=== PATIENT | female | born 1975 | race Caucasian/White ===

== ENCOUNTER 2016-05-18 20:55 | Emergency (ER) | payer BC, OTHER ==
[~2016-05-18] VITALS: Ht 165.1 cm; Wt 89.7 kg
[2016-05-18 20:56] VITALS: BP 133/100; PULSE 93; RESP 18; TEMP 98.6; O2SAT 97
[2016-05-18] MEDS ORDERED: PRED-503 PO (22:53)
[2016-05-18] MEDS ORDERED: DOXY100C PO (22:53)
[2016-05-18] MEDS ORDERED: ALBU6.7H INH (22:53)
--- NOTE | 2016-05-18 22:56 | PD ---
HPI Chief Complaint: Cold / Flu Symptoms Time Seen by Provider: 22:53 Travel History International Travel<30 days: No Contact w/Intl Traveler<30days: No Traveled to known affect area: No History of Present Illness HPI 41-year-old female presents to emergency department with a 3-4 day history of headache, sore throat, cough, congestion, runny nose and general malaise. She denies any shortness of breath. No nausea vomiting. No abdominal pain or diarrhea. No dysuria or frequency. No hematuria. PFSH Past Medical History Narrative Medical Asthma Asthma: Yes Diminished Hearing: No Tetanus Vaccination: < 5 Years ?: Not LMP: HAS MIRENA Past Surgical History Narrative Surgical , herniorrhaphy Abdominal Surgery: Yes (HERNIA REPAIR) Section: Yes Social History Alcohol Use: No Tobacco Use: No Substance Use: No Allergies-Medications (Allergen,Severity, Reaction): Coded Allergies: Seafood (Verified Allergy, Severe, Swelling, 05/18/16) Review of Systems Except as stated in HPI: all other systems reviewed are Neg Physical Exam Narrative GENERAL: Well-developed, well-nourished in no acute distress. Nontoxic appearing. HEAD: Normocephalic, atraumatic. EYES: Pupils equal round and reactive. Extraocular motions intact. No scleral icterus. No injection or drainage. ENT: TMs clear without erythema. The external auditory canals clear. Nose: clear nasal discharge with edema of the turbinates . Posterior pharynx is pink and moist. No tonsillar edema or exudate. Uvula midline. Airway patent. NECK: Trachea midline.Supple, nontender, moves head freely. No central bony tenderness or spasm. CARDIOVASCULAR: Regular rate and rhythm without murmurs, gallops, or rubs. RESPIRATORY: Patient has a few fine x-ray wheeze. Occasional rhonchi. No Rales. No respiratory distress. GASTROINTESTINAL: Abdomen soft, non-tender, nondistended. No hepato-splenomegaly , or palpable masses. No guarding. EXTREMITIES: No clubbing, cyanosis, or edema. No joint tenderness, effusion, or edema noted. BACK: Nontender without deformity or crepitance. No flank tenderness. Data Data Last Documented VS Vital Signs Date Time Temp Pulse Resp B/P Pulse Ox O2 Delivery O2 Flow Rate FiO2 05/18/16 20:56 98.6 93 18 133/100 97 Room Air Orders Prednisone (Deltasone) (05/18/16 23:00) Doxycycline (Vibramycin) (05/18/16 23:00) MDM Medical Decision Making Medical Screen Exam Complete: Yes Emergency Medical Condition: Yes Medical Record Reviewed: Yes Differential Diagnosis MDM: High Differential diagnoses: Pneumonia, bronchitis, URI, asthma, RAD, legionnaire's disease, SARS, ARDS, influenza, bronchiolitis, RSV,PE,CHF Narrative Course This is URI with wheezing Patient is given prednisone 40 mg and doxycycline 100 mg by mouth. Diagnosis Primary Impression: URI with wheezing Patient Instructions: General Instructions Additional Instructions: Rest. Increase fluids. Tylenol and Advil. Robitussin-DM. Doxycycline, prednisone, and albuterol. Followup with your Dr. in one week. Return to the ER for any problems. Med/Other Pt SpecificInfo: Prescription(s) given Scripts Albuterol 6.7 GM Inh (Proventil Hfa 6.7 GM Inh)90 Mcg/Act Aer2 Puff INH Q4-6H PRN (SHORTNESS OF BREATH) #1 INHALER Prov:Sukumar Dawson MD 05/18/16 Prednisone (Deltasone)20 Mg Tab20 Mg PO TID #15 TAB Prov:Sukumar Dawson MD 05/18/16 Doxycycline Hyclate 100 Mg [id number] Mg PO BID #14 CAP Prov:Sukumar Dawson MD 05/18/16 Disposition: 01 DISCHARGE HOME Condition: Stable Franc Mcclendon May 18, 2016 22:56
[2016-05-18] MEDS ORDERED: DOXYCYCLINE HYCLATE 100 MG CAP PO ONE (23:00)
[2016-05-18] MEDS ORDERED: predniSONE 20 MG TAB PO ONE (23:00)
== END 2016-05-18 23:11 | disposition home or self-care (01) ==
LOC: NEPB 20:55
DX: J06.9 Acute upper respiratory infection, unspecified (principal)
CPT/HCPCS: 99283; J7512

== ENCOUNTER 2016-05-30 12:51 | Emergency (ER) | payer BC, OTHER ==
[~2016-05-30] VITALS: Ht 170.2 cm; Wt 100.0 kg
[~2016-05-30 12:51] MED LIST: ALBU6.7H INH; DOXY100C PO; PRED-503 PO
[2016-05-30 12:52] VITALS: BP 149/80; PULSE 87; RESP 14; TEMP 98.7; O2SAT 98
[2016-05-30] MEDS ORDERED: ROBA750T PO (15:05)
[2016-05-30] MEDS ORDERED: NAPR500T PO (15:05)
[2016-05-30] MEDS ORDERED: IBUPROFEN 800 MG TAB PO ONE (15:15)
[2016-05-30] MEDS ORDERED: CYCLOBENZAPRINE HCL 10 MG TAB PO ONE (15:15)
--- NOTE | 2016-05-30 15:40 | PD ---
HPI Chief Complaint: Back/ Neck Pain or Injury Time Seen by Provider: 15:05 Travel History International Travel<30 days: No Contact w/Intl Traveler<30days: No Traveled to known affect area: No History of Present Illness HPI Patient is a 41-year-old [place] African only speaking female presenting with chief complaint of right back pain. It is the low back. She states yesterday she lifted her left leg trying to step out of the shower and felt a pulling and popping in her right lower back. She has had pain since. It is tight and aching. Worse with movement. She feels some pain in the left lower back as well. She has some tightness in her buttocks and posterior thighs. She denies weakness, paresthesia bowel or bladder dysfunction and saddle anesthesia. She denies any direct trauma or injury to the back. She has had back pain off and on for one year, no prior surgeries or injuries. She denies any attempts at palliation. She denies abdominal pain. She denies secondary to Mirena. [facility] Past Medical History Asthma: Yes Diminished Hearing: No ?: Not Past Surgical History Abdominal Surgery: Yes (HERNIA REPAIR) Section: Yes Social History Alcohol Use: No Tobacco Use: No Substance Use: No Allergies-Medications (Allergen,Severity, Reaction): Coded Allergies: Seafood (Verified Allergy, Severe, Swelling, 05/30/16) Reported Meds & Prescriptions Reported Meds & Active Scripts Active Robaxin (Methocarbamol) 750 Mg Tab 750 Mg PO QID PRN 2 tabs QID for 2 days, then 1 tab QID thereafter Naproxen 500 Mg Tab 500 Mg PO BID Proventil Hfa 6.7 GM Inh (Albuterol Sulfate) 90 Mcg/Act Aer 2 Puff INH Q4-6H PRN Doxycycline Hyclate 100 Mg Cap 100 Mg PO BID Review of Systems General / Constitutional: No: Fever Gastrointestinal: No: Abdominal Pain, Changes in Bowel Habits Genitourinary: No: Incontinence Musculoskeletal: Positive: Other (see the history of present illness) Neurologic: No: Weakness, Focal Abnormalities, Paresthesia, Sensory Disturbance Physical Exam Narrative GENERAL: Well-developed and well-nourished adult female in no acute distress. SKIN: Warm and dry. Good turgor without tenting. HEAD: Normocephalic and atraumatic. EYES: PERRL bilaterally, 5mm. EOMI bilaterally. No injection or icterus present. No proptosis. Lids without edema or erythema. ENT: Buccal mucosa pink and moist. Oropharynx free of erythema, tonsillar hypertrophy, masses, swelling, asymmetry and exudates. Uvula midline and airway patent. NECK: Supple, no midline tenderness, crepitus or step-offs. Trachea midline, no JVD. No cervical or facial lymphadenopathy. CARDIOVASCULAR: Regular rate and rhythm without murmurs, rubs, clicks or gallops. Dorsalis pedis and posterior tibial pulses 2+ bilaterally. No pedal edema. RESPIRATORY: Clear to auscultation bilaterally with symmetrical rise and fall, no distress or use of accessory muscles. GASTROINTESTINAL: Non-tender, non-distended. Normal bowel sounds all 4 quadrants. No masses or organomegaly present. MUSCULOSKELETAL: Shows some tenderness diffusely with palpation of the parasacral and low lumbar paraspinous musculature without edema or discoloration. No lumbar sacral midline tenderness, crepitus or step-offs. No pelvic instability or pain with pelvic rocking. Negative bilateral modified straight leg raise. Antalgic gait. Patient freely moving all four extremities spontaneously. Extremities without clubbing, cyanosis, or edema. No obvious deformities. NEUROLOGIC: CN II-XII grossly intact. Awake and alert. Sensation intact L1-S2 bilaterally. Strength 5/5 in hip flexion, hip extension, knee flexion, knee extension, plantar flexion, dorsiflexion, and great toe flexion and extension bilaterally. Bilateral patellar and Achilles DTRs 2+. Downgoing Babinskis bilaterally.Normal speech. PSYCHIATRIC: Appropriate mood and affect; insight and judgment normal. Data Data Last Documented VS Vital Signs Date Time Temp Pulse Resp B/P Pulse Ox O2 Delivery O2 Flow Rate FiO2 05/30/16 12:52 98.7 87 14 149/80 98 Room Air Orders Ibuprofen (Motrin) (05/30/16 15:15) Cyclobenzaprine (Flexeril) (05/30/16 15:15) MDM Medical Decision Making Medical Screen Exam Complete: Yes Emergency Medical Condition: Yes Differential Diagnosis Low back strain versus muscle spasm versus sciatica versus HNP Narrative Course Patient is a 41-year-old female with history and physical suggestive of a low back strain and resultant muscle spasm. She has some tightness in her buttocks and upper thighs which are secondary to spasm, no paresthesia, other neurologic symptom or "red flag "symptom. She is neurovascularly intact. She is given NSAIDs and Flexeril here. Prescription and for naproxen and Robaxin for home use. No imaging is warranted at this time.as patient is [place] only speaking used [employer] clerk [place] [id number] for full history and physical. See discharge paperwork for further instructions. The plan was discussed with the patient who acknowledged their understanding and agreement. Reinforced the follow-up with primary care is critically important. Patient instructed on emergent conditions that should prompt return to ED. Diagnosis Primary Impression: Low back strain Qualified Code: S39.012A - Low back strain, initial encounter Additional Impression: Muscle spasm Patient Instructions: General Instructions, Low Back Strain (ED) Departure Forms: Tests/Procedures, Work Release Enter return to work date: Jun 02, 2016 Additional Instructions: Rest for 24 hours, then gradually resume normal activity Avoid maneuvers or positions that aggravate the pain Avoid twisting/bending or lifting heavy items Take medications as prescribed Warm, moist heat applied to painful areas hourly as needed Try to massage and stretch affected muscles after applying heat to speed recovery Follow-up with PCP in 1-2 days Return to ED for any acute worsening of symptoms Med/Other Pt SpecificInfo: Prescription(s) given Scripts Methocarbamol (Robaxin)750 Mg [id number] Mg PO QID PRN (MUSCLE SPASM) #40 TAB 2 tabs QID for 2 days, then 1 tab QID thereafter Prov:Lex Spencer MD 05/30/16 Naproxen 500 Mg [id number] Mg PO BID #10 TAB Prov:Lex Spencer MD 05/30/16 Disposition: 01 DISCHARGE HOME Condition: Stable Wesley Morales III May 30, 2016 15:40
== END 2016-05-30 16:51 | disposition home or self-care (01) ==
LOC: NEPB 12:51
DX: S39.012A Strain of muscle, fascia and tendon of lower back, initial encounter (principal); M62.830 Muscle spasm of back; M62.838 Other muscle spasm; Z87.09 Personal history of other diseases of the respiratory system; X58.XXXA Exposure to other specified factors, initial encounter
CPT/HCPCS: 99283

== ENCOUNTER 2016-11-08 20:56 | Emergency (ER) | payer BC, MEDICAID ==
[~2016-11-08] VITALS: Ht 165.1 cm; Wt 90.0 kg
[~2016-11-08 20:56] MED LIST changes: +NAPR500T PO; -PRED-503 PO; +ROBA750T PO
[2016-11-08 21:00] VITALS: BP 185/106; PULSE 64; RESP 15; TEMP 98.9; O2SAT 99
--- NOTE | 2016-11-08 21:21 | PD ---
Physical Exam Time Seen by Provider: 21:16 Narrative Barb[place] speaking. 41yo F c/o weak, dizzy and almost fainted while she was cooking about two hours ago. +nausea w/o vomiting. Denies STEPHENS, chest pain, SOB , fever. Patient seen in triage. VS reviewed. Patient awaiting bed placement. Data Data Last Documented VS Vital Signs Date Time Temp Pulse Resp B/P Pulse Ox O2 Delivery O2 Flow Rate FiO2 11/08/16 21:00 98.9 64 15 185/106 99 Room Air [facility] Supervised Visit with SHELDON: Claudette Carlson Nov 08, 2016 21:21
--- NOTE | 2016-11-08 21:43 | PD ---
HPI . dizziness 2 hours prior to arrival resolved now Chief Complaint: Dizziness Time Seen by Provider: 21:34 Travel History International Travel<30 days: No Contact w/Intl Traveler<30days: No Traveled to known affect area: No History of Present Illness HPI 41-year-old Kyrgyz-speaking female with no past history here after having a headache followed by brief period of dizziness approximately 2 hours prior to arrival. All of her symptoms have resolved and she has no specific complaints at this time. Patient says that she was just standing and all of a sudden developed a sudden onset of headache followed by dizziness. She tells me that she felt very weak and thought she was going to pass out, which is what prompted her to come to the emergency department. She reports feeling good for the majority of the day and eating regular meals, however she did not want dinner. She denies any chest pain, shortness breath, abdominal pain, nausea, vomiting or other symptoms. Upon initial presentation her bp is elevated and she tells me this is completely new for her. Her primary care provider is Dr. Tiarra Westfall. She is accompanied by her . Translation services were used by nursing staff. I was also able to communicate with patient as well. She does not have history of headaches or hypertension. She takes meloxicam for body aches (arthritis). PFSH Past Medical History Asthma: Yes Diminished Hearing: No Past Surgical History Abdominal Surgery: Yes (HERNIA REPAIR) Section: Yes Social History Alcohol Use: No Tobacco Use: No Substance Use: No Allergies-Medications (Allergen,Severity, Reaction): Coded Allergies: Seafood (Verified Allergy, Severe, Swelling, 11/08/16) Reported Meds & Prescriptions Reported Meds & Active Scripts Active Proventil Hfa 6.7 GM Inh (Albuterol Sulfate) 90 Mcg/Act Aer 2 Puff INH Q4-6H PRN Reported Meloxicam 7.5 Mg Tab 7.5 Mg PO DAILY Review of Systems General / Constitutional: No: Fever Eyes: No: Visual changes HENT: No: Headaches Cardiovascular: No: Chest Pain or Discomfort Respiratory: Positive: Cough, No: Shortness of Breath Gastrointestinal: No: Abdominal Pain Genitourinary: No: Dysuria Musculoskeletal: No: Pain Skin: No Rash Neurologic: Positive: Dizziness, Headache, No: Weakness Psychiatric: No: Depression Endocrine: No: Polydipsia Hematologic/Lymphatic: No: Easy Bruising Physical Exam Narrative GENERAL: AAO x 3, no acute distress, Well-nourished, well-developed patient. SKIN: Warm and dry. No visible rashes or bruising. HEAD: Normocephalic and atraumatic. EYES: No scleral icterus. No injection or drainage. EOM intact, PERRLA ENT: No nasal drainage noted. Mucous membranes pink. Airway patent. TMs normal bilaterally. Oropharynx normal. NECK: Supple, trachea midline. No JVD. No lymphadenopathy. CARDIOVASCULAR: Regular rate and rhythm without murmurs, gallops, or rubs. RESPIRATORY: clear to auscultation bilaterally. GASTROINTESTINAL: Abdomen soft, non-tender, nondistended. EXTREMITIES: No cyanosis or edema. BACK: Nontender without obvious deformity. No CVA tenderness. NEURO: CN II-12 intact, cover creaser strength normal b/l, UE and LE 5/5, no focal deficits PSYCH: AAO x 3, normal affect. Data Data Last Documented VS Vital Signs Date Time Temp Pulse Resp B/P Pulse Ox O2 Delivery O2 Flow Rate FiO2 11/08/16 23:11 73 16 144/84 70 16 156/96 78 16 156/104 11/08/16 21:45 99 Room Air 11/08/16 21:00 98.9 Orders Complete Blood Count With Diff (11/08/16 21:43) Comprehensive Metabolic Panel (11/08/16 21:43) W[place]gren Sedimentation Rate (11/08/16 21:43) C-Reactive Protein (Crp) (11/08/16 21:43) Ct Brain W/O Iv Contrast(Rout) (11/08/16 21:43) Ecg Monitoring (11/08/16 21:43) Iv Access Insert/Monitor (11/08/16 21:43) Oximetry (11/08/16 21:43) Sodium Chloride 0.9% Flush (Ns Flush) (11/08/16 21:45) Ed Urine Pregnancytest Poc (11/08/16 21:43) Chest, Single Ap (11/08/16 ) Orthostatic Vital Signs (11/08/16 22:38) Electrocardiogram (11/08/16 ) Meclizine (Antivert) (11/08/16 23:15) Sodium Chlor 0.9% 1000 Ml Inj (Ns 1000 M (11/08/16 23:15) Labs Laboratory Tests Test 11/08/16 21:47 White Blood Count 7.8 TH/MM3 Red Blood Count 4.92 MIL/MM3 Hemoglobin 13.6 GM/DL Hematocrit 42.3 % Mean Corpuscular Volume 86.1 FL Mean Corpuscular Hemoglobin 27.6 PG Mean Corpuscular Hemoglobin 32.1 % Concent Red Cell Distribution Width 14.4 % Platelet Count 211 TH/MM3 Mean Platelet Volume 10.8 FL Neutrophils (%) (Auto) 58.9 % Lymphocytes (%) (Auto) 29.8 % Monocytes (%) (Auto) 6.7 % Eosinophils (%) (Auto) 4.2 % Basophils (%) (Auto) 0.4 % Neutrophils # (Auto) 4.6 TH/MM3 Lymphocytes # (Auto) 2.3 TH/MM3 Monocytes # (Auto) 0.5 TH/MM3 Eosinophils # (Auto) 0.3 TH/MM3 Basophils # (Auto) 0.0 TH/MM3 CBC Comment DIFF FINAL Differential Comment Erythrocyte Sedimentation Rate 16 mm/hr Sodium Level 140 MEQ/L Potassium Level 4.3 MEQ/L Chloride Level 106 MEQ/L Carbon Dioxide Level 27.3 MEQ/L Anion Gap 7 MEQ/L Blood Urea Nitrogen 11 MG/DL Creatinine 0.75 MG/DL Estimat Glomerular Filtration 85 ML/MIN Rate Random Glucose 85 MG/DL Calcium Level 9.0 MG/DL Total Bilirubin 0.5 MG/DL Aspartate Amino Transf 34 U/L (AST/SGOT) Alanine Aminotransferase 32 U/L (ALT/SGPT) Alkaline Phosphatase 85 U/L C-Reactive Protein 2.34 MG/DL Total Protein 7.8 GM/DL Albumin 3.6 GM/DL [facility] Medical Decision Making Medical Screen Exam Complete: Yes Emergency Medical Condition: Yes Medical Record Reviewed: Yes Differential Diagnosis migraine, sinus headache, tension headache, less likely SAH, orthostatic hypotension, hypoglycemia Narrative Course 41 yr old female here with c/o headache and dizziness. She also admitted to frequent coughing. Bp elevated. IV access was obtained and she was placed on continuous cardiac monitoring. Labs and imaging have been ordered. Patient currently asymptomatic. Last Impressions Head CT 11/08/16 2325 Signed Impressions: Service Date/Time: Tuesday, November 08, 2016 22:11 - CONCLUSION: Negative for acute process. Doin Jauregui MD FACR Chest X-Ray 11/08/16 0000 Signed Impressions: Service Date/Time: Tuesday, November 08, 2016 21:44 - CONCLUSION: No acute disease. Doni aJuregui MD FACR Laboratory Tests Test 11/08/16 21:47 White Blood Count 7.8 TH/MM3 Red Blood Count 4.92 MIL/MM3 Hemoglobin 13.6 GM/DL Hematocrit 42.3 % Mean Corpuscular Volume 86.1 FL Mean Corpuscular Hemoglobin 27.6 PG Mean Corpuscular Hemoglobin 32.1 % Concent Red Cell Distribution Width 14.4 % Platelet Count 211 TH/MM3 Mean Platelet Volume 10.8 FL Neutrophils (%) (Auto) 58.9 % Lymphocytes (%) (Auto) 29.8 % Monocytes (%) (Auto) 6.7 % Eosinophils (%) (Auto) 4.2 % Basophils (%) (Auto) 0.4 % Neutrophils # (Auto) 4.6 TH/MM3 Lymphocytes # (Auto) 2.3 TH/MM3 Monocytes # (Auto) 0.5 TH/MM3 Eosinophils # (Auto) 0.3 TH/MM3 Basophils # (Auto) 0.0 TH/MM3 CBC Comment DIFF FINAL Differential Comment Erythrocyte Sedimentation Rate 16 mm/hr Sodium Level 140 MEQ/L Potassium Level 4.3 MEQ/L Chloride Level 106 MEQ/L Carbon Dioxide Level 27.3 MEQ/L Anion Gap 7 MEQ/L Blood Urea Nitrogen 11 MG/DL Creatinine 0.75 MG/DL Estimat Glomerular Filtration 85 ML/MIN Rate Random Glucose 85 MG/DL Calcium Level 9.0 MG/DL Total Bilirubin 0.5 MG/DL Aspartate Amino Transf 34 U/L (AST/SGOT) Alanine Aminotransferase 32 U/L (ALT/SGPT) Alkaline Phosphatase 85 U/L C-Reactive Protein 2.34 MG/DL Total Protein 7.8 GM/DL Albumin 3.6 GM/DL labs reviewed: ESR is normal. CRP is elevated: per up to date : Minor CRP elevation (concentrations between 3 and 10 mg/L) has been generally regarded as a marker of what has been called low-grade inflammation. BP reassessed and WNL. Orthostatic vitals were ordered. 2258: reassessed patient and she reports dizziness with standing, but denies any other pain or symptoms. Discussed with Dr. Orozco, meds provided. Dr. Orozco will disposition this patient pending her response to meds. Condition: Stable Elsy Childs Nov 08, 2016 21:43
[2016-11-08] MEDS ORDERED: MELO7.5T4 PO (21:44)
[2016-11-08 21:45] VITALS: BP 122/78; PULSE 72; RESP 18; O2SAT 99
[2016-11-08] MEDS ORDERED: SODIUM CHLORIDE 0.9% FLUSH 10 ML FLUSH IVF PRN (21:45)
[2016-11-08 22:09] LABS: AUTOMATED NEUTROPHIL # 4.6 TH/MM3 (1.8-7.7); BASOPHIL % 0.4 % (0.0-2.0); EOSINOPHIL # 0.3 TH/MM3 (0-0.4); EOSINOPHIL % 4.2 % (0.0-4.0); HEMATOCRIT 42.3 % (35.0-46.0); HEMO FLAGS DIFF FINAL; LYMPH % 29.8 % (9.0-44.0); LYMPHOCYTE # 2.3 TH/MM3 (1.0-4.8); MEAN CELL VOLUME 86.1 FL (80.0-100.0); MEAN CORPUSCULAR HEMOGLOBIN 27.6 PG (27.0-34.0); MEAN CORPUSCULAR HGB CONC 32.1 % (32.0-36.0); MONO % 6.7 % (0.0-8.0); NEUT % 58.9 % (16.0-70.0); PLATELET COUNT 211 TH/MM3 (150-450); RED BLOOD COUNT 4.92 MIL/MM3 (4.00-5.30); RED CELL DISTRIBUTION WIDTH 14.4 % (11.6-17.2); WHITE BLOOD COUNT 7.8 TH/MM3 (4.0-11.0)
--- NOTE | 2016-11-08 22:22 | RADRPT ---
EXAM DATE/TIME: 11/08/2016 22:11 [facility] COMPARISON: No previous studies available for comparison. INDICATIONS : Cephalgia. RADIATION DOSE: 56.35 CTDIvol (mGy) MEDICAL HISTORY : None SURGICAL HISTORY : None. ENCOUNTER: Initial ACUITY: 1 day PAIN SCALE: 5/10 LOCATION: cranial TECHNIQUE: Multiple contiguous axial images were obtained of the head. Using automated exposure control and adj ustment of the mA and/or kV according to patient size, radiation dose was kept as low as reasonably a chievable to obtain optimal diagnostic quality images. DICOM format image data is available electro nically for review and comparison. FINDINGS: CEREBRUM: The ventricles are normal for age. No evidence of midline shift, mass lesion, hemorrhage or acute in farction. No extra-axial fluid collections are seen. POSTERIOR FOSSA: The cerebellum and brainstem are intact. The 4th ventricle is midline. The cerebellopontine angle i s unremarkable. EXTRACRANIAL: The visualized portion of the orbits is intact. SKULL: The calvaria is intact. No evidence of skull fracture. CONCLUSION: Negative for acute process. Doni Jauregui MD FACR on November 08, 2016 at 22:20 Board Certified Radiologist. This report was verified electronically.
--- NOTE | 2016-11-08 22:26 | RADRPT ---
EXAM DATE/TIME: 11/08/2016 21:44 [facility] COMPARISON: No previous studies available for comparison. INDICATIONS : Cough. MEDICAL HISTORY : None. SURGICAL HISTORY : None. ENCOUNTER: Initial ACUITY: 2 months PAIN SCORE: 0/10 LOCATION: Bilateral chest FINDINGS: A single view of the chest demonstrates the lungs to be symmetrically aerated without evidence of mas s, infiltrate or effusion. The cardiomediastinal contours are unremarkable. Osseous structures are intact. CONCLUSION: No acute disease. Doni Jauregui MD FACR on November 08, 2016 at 22:24 Board Certified Radiologist. This report was verified electronically.
[2016-11-08 22:29] LABS: ALKALINE PHOSPHATASE 85 U/L (45-117); TOTAL BILIRUBIN ADULT 0.5 MG/DL (0.2-1.0)
[2016-11-08 22:30] LABS: ALT (GPT) 32 U/L (10-53); ANION GAP 7 MEQ/L (5-15); AST (GOT) 34 U/L (15-37); BICARBONATE 27.3 MEQ/L (21.0-32.0); BLOOD UREA NITROGEN 11 MG/DL (7-18); CHLORIDE 106 MEQ/L (98-107); GLOMERULAR FILTRATION RATE 85 ML/MIN (>89); POTASSIUM 4.3 MEQ/L (3.5-5.1); SODIUM (NA) 140 MEQ/L (136-145)
[2016-11-08 23:11] VITALS: BP_SYST 144; BP_SYST 156; BP_DIAS 104; BP_DIAS 84; BP_DIAS 96; RESP 16
[2016-11-08] MEDS ORDERED: MECLIZINE HCL 25 MG TAB PO ONE (23:15)
[2016-11-08] MEDS ORDERED: SODIUM CHLOR 0.9% 1000 ML INJ 1,000 ML IV ONE (23:15)
[2016-11-09 00:05] VITALS: BP 160/110; PULSE 67; RESP 18; O2SAT 100
[2016-11-09 01:01] VITALS: BP 147/91; PULSE 69; RESP 18; O2SAT 100
[2016-11-09 01:44] VITALS: BP 159/79; PULSE 74; RESP 18; O2SAT 100
[2016-11-09] MEDS ORDERED: MECL-62 PO (01:54)
--- NOTE | 2016-11-09 01:54 | PD ---
Physical Exam Narrative I, Dr. Orozco, have reviewed the advance practice practitioner's documentation and am in agreement, met with the patient face to face, made the diagnosis, and the medical decision making was done by me. *My assessment and Findings: Patient is a 41-year-old female who comes in after an episode of dizziness and nausea today. She says she felt like the room is spinning around her. She says that the symptoms got worse when she is walking around. She denies having any chest pain or shortness of breath. Exam shows heart is regular in rate and rhythm. Lungs are clear to auscultation. Neurologic exam shows no acute abnormalities. Data Data Last Documented VS Vital Signs Date Time Temp Pulse Resp B/P Pulse Ox O2 Delivery O2 Flow Rate FiO2 11/09/16 01:44 74 18 159/79 100 Room Air 11/08/16 21:00 98.9 Orders Complete Blood Count With Diff (11/08/16 21:43) Comprehensive Metabolic Panel (11/08/16 21:43) Westergren Sedimentation Rate (11/08/16 21:43) C-Reactive Protein (Crp) (11/08/16 21:43) Ct Brain W/O Iv Contrast(Rout) (11/08/16 21:43) Ecg Monitoring (11/08/16 21:43) Iv Access Insert/Monitor (11/08/16 21:43) Oximetry (11/08/16 21:43) Sodium Chloride 0.9% Flush (Ns Flush) (11/08/16 21:45) Ed Urine Pregnancytest Poc (11/08/16 21:43) Chest, Single Ap (11/08/16 ) Orthostatic Vital Signs (11/08/16 22:38) Electrocardiogram (11/08/16 ) Meclizine (Antivert) (11/08/16 23:15) Sodium Chlor 0.9% 1000 Ml Inj (Ns 1000 M (11/08/16 23:15) Labs Laboratory Tests Test 11/08/16 21:47 White Blood Count 7.8 TH/MM3 Red Blood Count 4.92 MIL/MM3 Hemoglobin 13.6 GM/DL Hematocrit 42.3 % Mean Corpuscular Volume 86.1 FL Mean Corpuscular Hemoglobin 27.6 PG Mean Corpuscular Hemoglobin 32.1 % Concent Red Cell Distribution Width 14.4 % Platelet Count 211 TH/MM3 Mean Platelet Volume 10.8 FL Neutrophils (%) (Auto) 58.9 % Lymphocytes (%) (Auto) 29.8 % Monocytes (%) (Auto) 6.7 % Eosinophils (%) (Auto) 4.2 % Basophils (%) (Auto) 0.4 % Neutrophils # (Auto) 4.6 TH/MM3 Lymphocytes # (Auto) 2.3 TH/MM3 Monocytes # (Auto) 0.5 TH/MM3 Eosinophils # (Auto) 0.3 TH/MM3 Basophils # (Auto) 0.0 TH/MM3 CBC Comment DIFF FINAL Differential Comment Erythrocyte Sedimentation Rate 16 mm/hr Sodium Level 140 MEQ/L Potassium Level 4.3 MEQ/L Chloride Level 106 MEQ/L Carbon Dioxide Level 27.3 MEQ/L Anion Gap 7 MEQ/L Blood Urea Nitrogen 11 MG/DL Creatinine 0.75 MG/DL Estimat Glomerular Filtration 85 ML/MIN Rate Random Glucose 85 MG/DL Calcium Level 9.0 MG/DL Total Bilirubin 0.5 MG/DL Aspartate Amino Transf 34 U/L (AST/SGOT) Alanine Aminotransferase 32 U/L (ALT/SGPT) Alkaline Phosphatase 85 U/L C-Reactive Protein 2.34 MG/DL Total Protein 7.8 GM/DL Albumin 3.6 GM/DL [facility] Supervised Visit with SHELDON: Yes Narrative Course ECG shows normal sinus rhythm, no ST elevation or depression, normal intervals. Labs sent show no acute abnormalities. Patient was given meclizine and fluids and she feels much better. She is no longer having any symptoms. Patient found to have a slightly elevated blood pressure today. She is informed of this. She did advised follow-up with her primary care doctor. She is given a prescription for meclizine to take as needed for dizziness. She is advised to return to the emergency department as needed for any worsening symptoms. She is comfortable discharge at this time. Diagnosis Primary Impression: Vertigo Patient Instructions: General Instructions, Vertigo (ED) Additional Instruction: Follow-up with her primary care doctor. Drink plenty of fluids. Here blood pressure was high today, make sure to mention this to your primary care doctor. Return to the emergency department as needed for any worsening symptoms. Take meclizine as needed for dizziness. Scripts Meclizine 25 Mg Tab25 Mg PO TID PRN (VERTIGO) #20 TAB Ref 0 Prov:Gerquitaen,Sue B MD 11/09/16 Disposition: 01 DISCHARGE HOME Condition: Stable Sue Orozco MD Nov 09, 2016 01:54
--- NOTE | 2016-11-09 16:03 | EKG ---
Date Performed: 11/08/2016 Time Performed: 23:39:50 PTAGE: 41 years EKG: Sinus rhythm NONSPECIFIC T-WAVE ABNORMALITY ABNORMAL ECG NO PREVIOUS TRACING DOCTOR: Jordy Li Interpretating Date/Time 11/09/2016 16:02:37
== END 2016-11-09 02:08 | disposition home or self-care (01) ==
LOC: NEPE 20:56
DX: R42 Dizziness and giddiness (principal); R11.0 Nausea; R51 Headache; R05 Cough; J45.909 Unspecified asthma, uncomplicated; R94.31 Abnormal electrocardiogram [ECG] [EKG]; Z79.899 Other long term (current) drug therapy
CPT/HCPCS: 70450; 71010; 80053; 84703; 85025; 85652; 86140; 93005; 99285; J7030

== ENCOUNTER 2017-09-03 16:10 | Emergency (ER) | payer BC, MEDICAID, OTHER ==
[~2017-09-03] VITALS: Ht 167.6 cm; Wt 80.0 kg
[~2017-09-03 16:10] MED LIST changes: -DOXY100C PO; +MECL-62 PO; +MELO7.5T27 PO; -NAPR500T PO; -ROBA750T PO
[2017-09-03 16:11] VITALS: BP 178/78; PULSE 80; RESP 16; TEMP 98.2; O2SAT 100
[2017-09-03] MEDS ORDERED: SODIUM CHLOR 0.9% 1000 ML INJ 1,000 ML IV SCH (16:22)
[2017-09-03] MEDS ORDERED: diphenhydrAMINE HCL 50 MG/ML VIAL IVP ONE (16:30)
[2017-09-03] MEDS ORDERED: methylPREDNISolone SOD SUCC 125 MG/2 ML VIAL IV PUSH ONE (16:30)
[2017-09-03] MEDS ORDERED: EPINEPHrine HCL (1:1000) 1 MG/ML VIAL IM ONE (16:30)
[2017-09-03] MEDS ORDERED: SODIUM CHLORIDE 0.9% FLUSH 10 ML FLUSH IV FLUSH PRN (16:30)
[2017-09-03] MEDS ORDERED: FAMOTIDINE 20 MG/2 ML VIAL IV PUSH ONE (16:30)
[2017-09-03 16:34] VITALS: BP 138/83; PULSE 78; RESP 18; O2SAT 100
[2017-09-03] MEDS ORDERED: PRED20 PO (16:35)
[2017-09-03] MEDS ORDERED: ZANT150T2 PO (16:35)
[2017-09-03] MEDS ORDERED: EPIP0.3I IM (16:35)
[2017-09-03] MEDS ORDERED: DIPH25CA PO (16:35)
--- NOTE | 2017-09-03 16:35 | PD ---
HPI Chief Complaint: Allergic/Adverse Reaction Time Seen by Provider: 16:18 Travel History International Travel<30 days: No Contact w/Intl Traveler<30days: No Traveled to known affect area: No History of Present Illness HPI The patient is a 42-year-old female who presents to the emergency department for allergic reaction. The patient developed an allergic reaction approximately 2 PM after cleaning chicken. The patient states she developed a rash that affects the thorax, back, arms, with elevated red lesions that are pruritic. She denies any chest pain, shortness of breath, throat swelling, or wheezing. The patient took 2 Benadryl earlier today, but still has persistent symptoms. The patient does have a history of allergic reaction similar to this in the past with seafood, is unsure if she came into contact with seafood. The patient denies any recent new medications. Symptoms are moderate, minimally alleviated with Benadryl. PFSH Past Medical History Asthma: Yes Diminished Hearing: No Respiratory: Yes (Asthma) ?: Not Past Surgical History Abdominal Surgery: Yes (HERNIA REPAIR as an infant) Section: Yes Social History Alcohol Use: No Tobacco Use: No Substance Use: No Allergies-Medications (Allergen,Severity, Reaction): Coded Allergies: Fish Containing Products (Unverified Allergy, Severe, Swelling, 12/17/16) Reported Meds & Prescriptions Reported Meds & Active Scripts Active Meclizine (Meclizine HCl) 25 Mg Tab 25 Mg PO TID PRN Proventil Hfa 6.7 GM Inh (Albuterol Sulfate) 90 Mcg/Act Aer 2 Puff INH Q4-6H PRN Reported Meloxicam 7.5 Mg Tab 7.5 Mg PO DAILY Review of Systems Except as stated in HPI: all other systems reviewed are Neg General / Constitutional: No: Fever HENT: No: Lightheadedness Cardiovascular: No: Chest Pain or Discomfort Respiratory: No: Shortness of Breath, Wheezing Gastrointestinal: No: Nausea, Vomiting, Abdominal Pain Musculoskeletal: No: Edema Skin: Positive Rash, Positive Itching Neurologic: No: Dizziness Physical Exam Narrative GENERAL: Awake, alert, 42-year-old female who appears her stated age and is in no acute respiratory distress. SKIN: Elevated your urticaria which mahin on the arms, chest, and back. HEAD: Atraumatic. Normocephalic. EYES: Pupils equal and round. No scleral icterus. No injection or drainage. ENT: No nasal bleeding or discharge. Mucous membranes pink and moist. No visible uvula edema. No visible edema of the tongue or lips. NECK: Trachea midline. No JVD. CARDIOVASCULAR: Regular rate and rhythm. No murmur appreciated. No audible wheezing. RESPIRATORY: No accessory muscle use. Clear to auscultation. Breath sounds equal bilaterally. GASTROINTESTINAL: Abdomen soft, non-tender, nondistended. MUSCULOSKELETAL: No obvious deformities. No clubbing. No cyanosis. No edema. NEUROLOGICAL: Awake and alert. No obvious cranial nerve deficits. Motor grossly within normal limits. Normal speech. PSYCHIATRIC: Appropriate mood and affect; insight and judgment normal. Data Data Last Documented VS Vital Signs Date Time Temp Pulse Resp B/P (MAP) Pulse Ox O2 Delivery O2 Flow Rate FiO2 09/03/17 16:11 98.2 80 16 178/78 (111) 100 Orders Orders Ecg Monitoring (09/03/17 16:22) Iv Access Insert/Monitor (09/03/17 16:22) Oximetry (09/03/17 16:22) Diphenhydramine Inj (Benadryl Inj) (09/03/17 16:30) Methylprednisolone So Succ Inj (Solumedr (09/03/17 16:30) Famotidine Inj (Pepcid Inj) (09/03/17 16:30) Sodium Chlor 0.9% 1000 Ml Inj (Ns 1000 M (09/03/17 16:22) Sodium Chloride 0.9% Flush (Ns Flush) (09/03/17 16:30) Epinephrine (1:1000) Inj (Adrenalin (1:1 (09/03/17 16:30) MDM Medical Decision Making Medical Screen Exam Complete: Yes Emergency Medical Condition: Yes Medical Record Reviewed: Yes Differential Diagnosis Differential diagnosis includes allergic reaction, anaphylaxis, medication side effect, idiopathic urticaria. Narrative Course IV was established, labs are drawn and sent, and the patient was placed on cardiac telemetry monitoring and continuous pulse oximetry monitoring. The patient was administered Solu-Medrol, Benadryl, Pepcid, and epinephrine 0.3 mg IM. Epinephrine was administered as the patient took Benadryl 2 hours prior to arrival and symptoms have persisted. The patient was signed out to the oncoming physician at 5 PM. If patient is stable and 4 hours she can be discharged home. Diagnosis Primary Impression: Allergic reaction Qualified Codes: T78.40XA - Allergy, unspecified, initial encounter Additional Impression: Urticaria Patient Instructions: General Instructions Additional Instructions: Medications as directed. Follow-up with her primary physician. Return if symptoms worsen or progress. Med/Other Pt SpecificInfo: Prescription(s) given Scripts Epinephrine Inj (Epipen 2-Naveed Inj) 0.3 Mg/0.3 Ml Pfpen 0.3 MG IM ONCE Y for ALLERGIC REACTION, #1 PACK 0 Refills Prov: Lex Spencer MD 09/03/17 Ranitidine (Zantac) 150 Mg Tab 150 MG PO BID for Reduce Stomach Acid for 5 Days, #10 TAB 0 Refills Prov: Lex Spencer MD 09/03/17 Diphenhydramine (Diphenhydramine) 25 Mg Cap 25 MG PO Q6H Y for ALLERGIES, #20 CAP 0 Refills Prov: Lex Spencer MD 09/03/17 Prednisone (Prednisone) 20 Mg Tab 40 MG PO DAILY, #10 TAB 0 Refills Take 40 mg (2 tablets) daily for 5 days Prov: Lex Spencer MD 09/03/17 Disposition: DISCHARGE HOME Condition: Stable Lex Spencer MD September 03, 2017 16:35
[2017-09-03] MEDS ORDERED: ALBUAER3 INH (16:49)
[2017-09-03] MEDS ORDERED: LISI10TA3 PO (16:49)
[2017-09-03 18:00] VITALS: BP 125/77; PULSE 82; RESP 21; O2SAT 100
--- NOTE | 2017-09-03 20:17 | PD ---
Data Data Last Documented VS Vital Signs Date Time Temp Pulse Resp B/P (MAP) Pulse Ox O2 Delivery O2 Flow Rate FiO2 09/03/17 18:00 82 21 125/77 (93) 100 Room Air 09/03/17 16:11 98.2 Orders Orders Ecg Monitoring (09/03/17 16:22) Iv Access Insert/Monitor (09/03/17 16:22) Oximetry (09/03/17 16:22) Diphenhydramine Inj (Benadryl Inj) (09/03/17 16:30) Methylprednisolone So Succ Inj (Solumedr (09/03/17 16:30) Famotidine Inj (Pepcid Inj) (09/03/17 16:30) Sodium Chlor 0.9% 1000 Ml Inj (Ns 1000 M (09/03/17 16:22) Sodium Chloride 0.9% Flush (Ns Flush) (09/03/17 16:30) Epinephrine (1:1000) Inj (Adrenalin (1:1 (09/03/17 16:30) Ed Discharge Order (09/03/17 20:16) MDM Supervised Visit with SHELDON: No Narrative Course Patient CARE assumed from Dr. Galen Spencer at 1700, this is a 42-year-old female with a history of fish allergy who states she was making [place] and after cleaning the fish she developed a rash. 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 On my first examination of the patient at approximately 1730 she states her rash is completely cleared and she is feeling much better. She was observed for a total of 4 hours in the emergency department had no return of symptoms. She was counseled on the use of EpiPen at home, Dr. Spencer is written her several prescriptions to go home with. After period of observation she is stable for discharge and is no indication for further workup. Discussed return to ED criteria symptomatic management through excellence coach. All of her questions were answered. Diagnosis Primary Impression: Allergic reaction Qualified Codes: T78.40XA - Allergy, unspecified, initial encounter Additional Impression: Urticaria Patient Instructions: General Instructions Additional Instruction: Medications as directed. Follow-up with her primary physician. Return if symptoms worsen or progress. Med/Other Pt SpecificInfo: Prescription(s) given Scripts Epinephrine Inj (Epipen 2-Naveed Inj) 0.3 Mg/0.3 Ml Pfpen 0.3 MG IM ONCE Y for ALLERGIC REACTION, #1 PACK 0 Refills Prov: Lex Spencer MD 09/03/17 Ranitidine (Zantac) 150 Mg Tab 150 MG PO BID for Reduce Stomach Acid for 5 Days, #10 TAB 0 Refills Prov: Lex Spencer MD 09/03/17 Diphenhydramine (Diphenhydramine) 25 Mg Cap 25 MG PO Q6H Y for ALLERGIES, #20 CAP 0 Refills Prov: Lex Spencer MD 09/03/17 Prednisone (Prednisone) 20 Mg Tab 40 MG PO DAILY, #10 TAB 0 Refills Take 40 mg (2 tablets) daily for 5 days Prov: Lex Spencer MD 09/03/17 Disposition: 01 DISCHARGE HOME Condition: Stable Yonny Neil MD September 03, 2017 20:17
== END 2017-09-03 22:48 | disposition home or self-care (01) ==
LOC: NEPD 16:10
DX: L50.9 Urticaria, unspecified (principal); J45.909 Unspecified asthma, uncomplicated
CPT/HCPCS: 96361; 96372; 96374; 96375; 99284; J0171; J1200; J2930; J7030